=== PATIENT | female | born 1950 | race Caucasian/White ===

== ENCOUNTER 2017-10-17 03:34 | Outpatient (CLI) | payer SELFPAY | END 2017-10-17 23:59 | disposition home or self-care (01) | LOC: HW VAS 03:34 | DX: Z00.00 Encounter for general adult medical examination without abnormal findings (principal) ==

== ENCOUNTER 2021-06-27 13:51 | Outpatient (CLI) | payer SELFPAY | END 2021-06-27 23:59 | disposition home or self-care (01) | LOC: VAS 13:51 | DX: Z13.6 Encounter for screening for cardiovascular disorders (principal) ==

== ENCOUNTER 2024-09-16 08:34 | Outpatient (CLI) | payer SELFPAY | END 2024-09-16 23:59 | disposition home or self-care (01) | LOC: VAS 08:34 | DX: I65.23 Occlusion and stenosis of bilateral carotid arteries (principal); I73.9 Peripheral vascular disease, unspecified ==